=== PATIENT | female | born 1980 | race Caucasian/White ===

== ENCOUNTER 2016-11-20 07:25 | Emergency (ER) | payer OTHER ==
[~2016-11-20 07:25] MED LIST: ADVIL COLD & SI1 TA2; ATARAX PO; BACTRIM DS TABL1 TA1 PO; BENTYL20 MG PO; FLAGYL; FLEXERIL PO; FLEXERIL10 MG PO; IBUPROFEN400 MG; IBUPROFEN800 MG PO; MEDROL PO; METHYLPREDNISOLO8 MG; MIRALAX17 G1 PO; MOTRIN IB200 M1 PO; MULTI VITAMIN1 EACH; MULTI VITAMIN1 EACH PO; NEURONTIN PO; NEURONTIN100 MG PO; NEURONTIN300 MG PO; OMEPRAZOLE40 MG PO; PERCOCET 10/6501 TA1 PO; PERCOCET10 PO; PERCOCET5/325; PERCOCET5/325 PO; PRILOSEC20 M1 PO; ROXICODONE15 MG PO; ULTRAM PO; VICODIN 5/1 TAB 5/50 PO; VOLTAREN50 MG PO; ZOFRAN ODT4 MG PO; ZYRTEC-D TABLE1 EACH PO
[2016-11-20 07:31] LABS: URINE SOURCE CLEAN CATCH
[2016-11-20 07:34] LABS: URINE APPEARANCE SL CLOUDY; URINE BILIRUBIN NEG (NEG); URINE BLOOD 3+ (NEG); URINE COLOR AMBER; URINE GLUCOSE NEG (NORM); URINE KETONE NEG (NEG); URINE LEUKOCYTE ESTERASE 1+ (NEG); URINE NITRATE POS (NEG); URINE PROTEIN 3+ (NEG); URINE SPECIFIC GRAVITY 1.025 (1.003-1.035)
[2016-11-20 07:36] LABS: MICRO INDICATED? YES
[2016-11-20 07:40] LABS: URINE RBC INNUM /[HPF] (0-2); URINE WBC INNUM /[HPF] (0-5)
[2016-11-20 07:41] LABS: CULTURE INDICATED? YES; URINE BACTERIA 3+ (NEG); URINE SQUAMOUS EPITHELIAL CELL OCCAS /[HPF]
[2016-11-22 15:39] LABS: CHLAMYDIA TRACH Not Detected (Not Detected); N GONOR Not Detected (Not Detected)
== END 2016-11-20 08:29 | disposition home or self-care (01) ==
LOC: SED 07:25
PROVIDERS: Emergency Medicine
DX: N30.00 Acute cystitis without hematuria (principal); M06.9 Rheumatoid arthritis, unspecified; M79.7 Fibromyalgia; Z90.710 Acquired absence of both cervix and uterus; Z98.51 Tubal ligation status
CPT/HCPCS: 81003; 87077; 87086; 87186; 87491; 87591; 96372; 99283; J0696